=== PATIENT | female | born 1985 | race Two or more races ===

== ENCOUNTER 2023-05-18 18:00 | Emergency (ER) | payer OTHER ==
[~2023-05-18] VITALS: Ht 157.5 cm; Wt 91.0 kg
[2023-05-18 18:19] VITALS: TEMP 99.1
[2023-05-18] MEDS ORDERED: CLOT15CR5 TP (23:21)
[2023-05-18] MEDS ORDERED: CEPH-558 PO (23:21)
[2023-05-18] MEDS ORDERED: CORTSUSP AD (23:21)
[2023-05-18] MEDS ORDERED: FLUC150T61 PO (23:21)
[2023-05-18] MEDS ORDERED: DIPH50CA37 PO (23:21)
[2023-05-18] MEDS ORDERED: ACET-2080 PO (23:21)
[2023-05-18] MEDS ORDERED: PRED-554 PO (23:21)
[2023-05-18] MEDS ORDERED: VALA500T42 PO (23:21)
[2023-05-18 23:34] VITALS: BP 147/86; PULSE 79; RESP 16
== END 2023-05-19 00:25 | disposition home or self-care (01) ==
LOC: EMS 18:04
DX: H60.91 Unspecified otitis externa, right ear (principal); H66.91 Otitis media, unspecified, right ear; L23.9 Allergic contact dermatitis, unspecified cause; Z90.49 Acquired absence of other specified parts of digestive tract
CPT/HCPCS: 99283